=== PATIENT | male | born 1975 | race Two or more races ===

== ENCOUNTER 2021-07-25 12:51 | Emergency (ER) | payer OTHER ==
[~2021-07-25] VITALS: Ht 162.6 cm; Wt 68.9 kg
[2021-07-25] MEDS ORDERED: SODIUM CHLORIDE 0.9% 50ML 50 ML ONE (14:28)
[2021-07-25] MEDS ORDERED: IOPAMIDOL 370 MG/ML 200 ML INFUS..BTL INJ ONE (14:29)
[2021-07-25 16:01] VITALS: BP 124/74
[2021-07-25] MEDS ORDERED: LEVOFLOXACIN750 MG PO (16:09)
== END 2021-07-25 16:21 | disposition home or self-care (01) ==
LOC: FSED 13:00
DX: I88.8 Other nonspecific lymphadenitis (principal)
CPT/HCPCS: 74177; 80053; 81003; 85025; 99284; Q9967